=== PATIENT | female | born 1950 | race Caucasian/White ===

== ENCOUNTER → 2016-11-15 | Outpatient (CLI) | payer OTHER ==
[~2016-11-15] MED LIST: ALPRAZOLAM 0.50.5 M1; ATIVAN0.5 MG; CALCIUM 500 +1 EAC6; FENOFIBRATE200 MG; GLUCOPHAGE500 MG; OMEGA 3-6-9 CO1 EACH; OMEPRAZOLE 20 M20 MG; PAXIL; TRIAMTERENE-HC1 EAC1; VENLAFAXINE HCL75 M2; WOMEN'S 50+ DA1 EACH
== END ==
LOC: RAD 11:47
DX: Z12.31 Encounter for screening mammogram for malignant neoplasm of breast (principal)

== ENCOUNTER → 2017-12-30 | Outpatient (CLI) | payer OTHER | LOC: RAD 07:42 | DX: Z12.31 Encounter for screening mammogram for malignant neoplasm of breast (principal) ==

== ENCOUNTER → 2019-01-12 | Outpatient (CLI) | payer OTHER | LOC: RAD 08:38 | DX: Z12.31 Encounter for screening mammogram for malignant neoplasm of breast (principal) ==

== ENCOUNTER 2019-05-26 06:40 | Inpatient (IN) | payer OTHER ==
[~2019-05-26] VITALS: Ht 167.6 cm; Wt 80.7 kg
[2019-05-26 07:00] VITALS: BP 128/74
[2019-05-26 07:29] LABS: HEMATOCRIT 41.3 % (37.0-47.0); HEMOGLOBIN 13.5 gm/dL (12.0-15.0); MCH 26.8 pg (26.0-34.0); MCHC 32.6 g/dL (28.0-37.0); MCV 82.1 fL (80.0-100.0); RBC 5.03 mil/uL (4.20-5.00); RDW 15.1 % (10.5-14.5); WBC 14.3 thou/uL (4.0-11.0)
[2019-05-26] MEDS ORDERED: ASPIR 8181 MG PO (07:31)
[2019-05-26] MEDS ORDERED: ZETIA10 MG PO (07:36)
[2019-05-26 07:37] LABS: CALCIUM 10.2 mg/dL (8.5-10.1); POTASSIUM 3.1 mmol/L (3.5-5.1)
[2019-05-26 07:43] LABS: ALBUMIN 3.7 g/dL (3.4-5.0); TOTAL BILIRUBIN 0.5 mg/dL (<0.1-1.0); TOTAL PROTEIN 7.7 g/dL (6.4-8.2)
[2019-05-26 08:22] LABS: URINE BLOOD TRACE (Negative); URINE CLARITY CLEAR; URINE COLOR YELLOW; URINE GLUCOSE-RANDOM* NEGATIVE (Negative); URINE KETONES NEGATIVE (Negative); URINE NITRITE-REFLEX NEGATIVE (Negative); URINE PROTEIN (DIPSTICK) 1+ (Negative); URINE UROBILINOGEN 0.2 E.U./dl (0.2-1.0)
[2019-05-26 08:31] LABS: URINE LEUKOCYTES-REFLEX 1+ (Negative)
[2019-05-26 08:32] LABS: ICTOTEST (BILI CONFIRMATORY) Negative (Negative); SQUAMOUS 0-3 Few /LPF (0-3); URINE BILIRUBIN NEGATIVE (Negative)
[2019-05-26 08:34] LABS: BACTERIA-REFLEX 1-9 Few /HPF (None Seen); CRYSTALS None Seen /LPF (None Seen); HYALINE CASTS 0-3 Few /LPF (None Seen); URINE RBC 0-2 Rare /HPF (0-2)
[2019-05-26 08:57] VITALS: BP 149/56
[2019-05-26 09:28] VITALS: BP 125/60
[2019-05-26 16:10] VITALS: BP 147/79
--- NOTE | 2019-05-26 17:42 | NUR ---
68 YO FEMALE ADMITTED TO 424 BY W/C FROM ED. A&OX4, AMBULATES WOTH STAND BY ASSIST. IV INTACT IN R FA. PT HAVING LOOSE WATERY STOOLS. IV CONT. FLUIDS NS @ 100/HR STARTED, LAMOTAL PO GIVEN PRN. ORIENTED PT TO ROOM/CALL LIGHT. WILL CONT. POC.
[2019-05-26] MEDS ORDERED: COZAAR 25 MG TA25 M2 PO (20:01)
[2019-05-26 22:00] VITALS: BP 157/70
[2019-05-27 03:40] VITALS: BP 151/63
[2019-05-27 04:17] LABS: HEMATOCRIT 38.1 % (37.0-47.0); HEMOGLOBIN 12.4 gm/dL (12.0-15.0); MCH 26.8 pg (26.0-34.0); MCHC 32.5 g/dL (28.0-37.0); MCV 82.6 fL (80.0-100.0); RBC 4.62 mil/uL (4.20-5.00); RDW 14.8 % (10.5-14.5); WBC 9.5 thou/uL (4.0-11.0)
[2019-05-27 04:29] LABS: CALCIUM 8.6 mg/dL (8.5-10.1); CREATININE 0.7 mg/dL (0.6-1.0); POTASSIUM 3.9 mmol/L (3.5-5.1)
--- NOTE | 2019-05-27 05:28 | NUR ---
A/O, BP elevated, patient claimed she had been taking Losartan daily at home, Losartan was recorded into Medication Reconcile, MICROW[employer] SUPERVISOR Ms. Bradley notified. Bradley did not add Losartan, asking the staff to keep monitoring the patient. Will pass this on to the day shift.
[2019-05-27 08:19] VITALS: BP 126/70
--- NOTE | 2019-05-27 16:42 | NUR ---
PT FEELING MUCH BETTER. DIARRHEA MUCH BETTER SINCE STARTING ON IMMODIUM. NO MORE NAUSEA AND FEELING HUNGRY. TAKING CHICKEN BROTH AND WATER. HAS LOW BACK PAIN AT HOME AND NOW HAVING HERE. STARTED ON VOLTAREN GEL AND CELEBREX WHICH HAS TAKEN CARE OF PAIN. IV FLAGYL ORDERED THIS AFTERNOON.
[2019-05-27 16:47] VITALS: BP 152/65
[2019-05-27 19:15] VITALS: BP 135/70
[2019-05-28 05:23] VITALS: BP 123/59
--- NOTE | 2019-05-28 05:25 | NUR ---
PT AMBULATING IN HALLWAYS INDEPENDENTLY AND IS TOLERATING WELL. 23 LOOSE STOOL AT BEGINNING OF SHIFT. DENIES PAIN. DENIES NAUSEA. DIET ADVANCED TO CARB CONTROLLED. PLAN FOR DISCHARGE HOME 05/28. RESTING COMFORTABLY. NO NEEDS VOICED. CALL LIGHT WITHIN REACH. WILL CONTINUE TO PROVIDE FREQUENT OBSERVATION.
[2019-05-28 08:14] VITALS: BP 150/80
--- NOTE | 2019-05-28 13:54 | NUR ---
INITIAL ASSESSMENT: Pt evaluated for d/c planning needs. Reviewed chart and spoke with nurse and pt. Pt is alert and oriented. Pt remains active in the community and was employed until last week. 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 Pt lives alone in house and was independent with ADL's. Pt uses no DME and has not had home health in the past. Pt plans on returning home on d/c from hospital. Will remain available to assist as needed.
[2019-05-28 16:17] VITALS: BP 156/66
--- NOTE | 2019-05-28 16:28 | NUR ---
ASSUMED CARE OF PT AT 0700. ASSESSMENT CHARTED. DENIES ABD PAIN. DENIES N/V/D, STATES "RUMBLING" AFTER BREAKFAST. TOLERATING ADVANCED DIET. UP AD JUANJO IN ROOM. SKIN INTACT. C/O CHRONIC BACK PAIN, VOLTERAN CREAM APPLIED ORDERED. PLAN TO D/C SOON, DR. AGUIRRE REPORTED TOMORROW. VSS. WILL CONTINUE TO MONITOR.
[2019-05-28 19:18] VITALS: BP 144/60
--- NOTE | 2019-05-29 01:58 | NUR ---
PT DENIED PAIN SO FAR.UP ADLIB IN ROOM,WALKED IN THE PRATT WAY BEFORE RETIRING FOR THE NIGHT.VOLTAREN CREAM TO HER LOWER BACK AND SIDES OF HER LEG.NO LOOSE STOOL NOTED SO FAR THIS SHIFT BUT PT REPORTED HAVING FLATUS.PT RESTING COMFORTABLY ON HER BED AT THIS TIME.CALL LIGHT WITHIN REACH.
[2019-05-29 04:12] VITALS: BP 153/72
[2019-05-29 08:16] VITALS: BP 133/54
--- NOTE | 2019-05-29 10:28 | NUR ---
Following for d/c planning needs. Pt given requested information re: [facility]. Pt to d/c home today. No needs identified.
[2019-05-29 11:25] VITALS: BP 133/54
--- NOTE | 2019-05-29 11:32 | NUR ---
Pt in bed sound asleep at the beginning of shift but woke up for breakfast and am meds around 8:30am.Assessment completed.vss.Pt tolerated meds and breakfast.Dr Danielson here,dc order noted.Pt ambulated in hallways several times today.Dc summary compiled and will review with pt prior to dc home today at 1300.Will continue to monitor.
== END 2019-05-29 13:55 | disposition home or self-care (01) | DRG 392 ==
LOC: ER 06:40 → 4E 09:28 → EROBS 09:32 → 4E 09:33 → ENTRNSPT 05-29 13:33 → EDTRNSPTSTS 05-29 13:49 → 4E 05-29 13:55
PROVIDERS: Student in an Organized Health Care Education/Training Program; ADMIT Hospitalist
DX: K52.9 Noninfective gastroenteritis and colitis, unspecified (principal); E11.9 Type 2 diabetes mellitus without complications; E87.6 Hypokalemia; E78.5 Hyperlipidemia, unspecified; F32.9 Major depressive disorder, single episode, unspecified; E66.01 Morbid (severe) obesity due to excess calories; M54.30 Sciatica, unspecified side; Z68.28 Body mass index [BMI] 28.0-28.9, adult; Z90.49 Acquired absence of other specified parts of digestive tract; Z90.710 Acquired absence of both cervix and uterus; Z79.82 Long term (current) use of aspirin; Z79.84 Long term (current) use of oral hypoglycemic drugs; Z79.899 Other long term (current) drug therapy; Z88.7 Allergy status to serum and vaccine; Z91.041 Radiographic dye allergy status
CPT/HCPCS: 10084

== ENCOUNTER 2019-12-22 15:52 | Emergency (ER) | payer OTHER ==
[~2019-12-22] VITALS: Ht 167.6 cm; Wt 85.3 kg
[~2019-12-22 15:52] MED LIST changes: +ASPIR 8181 MG PO; +COZAAR 25 MG TA25 M2 PO; +ZETIA10 MG PO
[2019-12-22 16:23] LABS: ABSOLUTE NEUTROPHILS 7.7 thou/uL (1.4-8.2); BASOPHILS 0.9 % (0.0-2.0); EOSINOPHILS 3.4 % (0.0-3.0); HEMATOCRIT 41.4 % (37.0-47.0); HEMOGLOBIN 13.3 gm/dL (12.0-15.0); LYMPHOCYTES 23.7 % (24.0-44.0); MCH 27.1 pg (26.0-34.0); MCV 84.6 fL (80.0-100.0); MONOCYTES 7.1 % (1.0-8.0); PLATELET COUNT 256 thou/uL (150-400); POLYS 64.9 % (36.0-66.0); RDW 15.1 % (10.5-14.5); WBC 11.9 thou/uL (4.0-11.0)
[2019-12-22 16:41] LABS: ANION GAP 12 mmol/L (7-16); BUN 19 mg/dL (7-18); CALCIUM 10.2 mg/dL (8.5-10.1); CHLORIDE 100 mmol/L (98-107); CO2 27 mmol/L (21-32); CREATININE 0.8 mg/dL (0.6-1.0); GLUCOSE 101 mg/dL (74-106); POTASSIUM 4.7 mmol/L (3.5-5.1); SODIUM 139 mmol/L (136-145)
[2019-12-22 16:55] LABS: ALBUMIN 4.2 g/dL (3.4-5.0); SGOT 43 U/L (15-37); SGPT 50 U/L (30-65); TOTAL BILIRUBIN 0.2 mg/dL (<0.1-1.0); TOTAL PROTEIN 7.8 g/dL (6.4-8.2); TROPONIN-I <0.06 ng/mL (<0.06)
[2019-12-22] MEDS ORDERED: ACYCLOVIR 800800 MG PO (17:38)
[2019-12-22 17:50] VITALS: BP 185/84
[2019-12-22] MEDS ORDERED: ATIVAN0.5 M1 PO (17:50)
--- NOTE | 2019-12-28 15:34 | EKG ---
[facility] [place] [address] ELECTROCARDIOGRAM REPORT Name: NITIN WEN [facility] [id number] Admission: 12/22/19 Attend Phys: Discharge: 12/22/19 Date of : 52 Report #: [id number] THIS REPORT FOR: cc: Ramón Escalona MD, Neal A. MD Park, Jin S. MD ~ THIS REPORT FOR: //name// [facility] ED Test Date: 2019-12-22 Test Time: 15:55:33 Pat Name: NITIN WEN Department: Room: Gender: Advanced Manufacturing Engineer: [facility] : 1950 Requested By: Selvin Anna Order Number: [id number] MD: Jose Alejandro Avendano Measurements Intervals [place] Rate: 91 P: 60 ME: 147 QRS: 66 QRSD: 81 T: 59 QT: 355 QTc: 437 Interpretive Statements Sinus rhythm Anteroseptal infarct, old Compared to ECG 04/20/2002 03:05:19 Myocardial infarct finding now present Electronically Signed On 12-23-2019 10:03:37 BASKET BRAIDER by Jose Alejandro Avendano [email or web address] <ELECTRONICALLY SIGNED> By: Jose Alejandro Avendano MD 12/23/19 1003 1555 1555 Jose Alejandro Avendano MD /[facility]
== END 2019-12-22 17:50 | disposition home or self-care (01) ==
LOC: ER 15:52
PROVIDERS: Emergency Medicine
DX: F41.9 Anxiety disorder, unspecified (principal); B02.9 Zoster without complications; Z91.041 Radiographic dye allergy status; Z88.7 Allergy status to serum and vaccine; Z90.49 Acquired absence of other specified parts of digestive tract; Z90.710 Acquired absence of both cervix and uterus

== ENCOUNTER → 2020-05-20 | Outpatient (CLI) | payer OTHER ==
[~2020-05-20] MED LIST changes: +ACYCLOVIR 800800 MG PO; +ATIVAN0.5 M1 PO
== END ==
LOC: RAD 11:48
PROVIDERS: ATTEND Family Medicine
DX: Z12.31 Encounter for screening mammogram for malignant neoplasm of breast (principal)

== ENCOUNTER → 2020-12-02 | Outpatient (CLI) | payer OTHER | LOC: RAD 13:27 | PROVIDERS: ATTEND Nurse Practitioner | DX: R07.81 Pleurodynia (principal); M47.814 Spondylosis without myelopathy or radiculopathy, thoracic region ==

== ENCOUNTER 2021-05-20 11:32 | Inpatient (IN) | payer OTHER ==
[~2021-05-20] VITALS: Ht 165.1 cm; Wt 80.3 kg
[2021-05-20 11:38] VITALS: BP 168/76
--- NOTE | 2021-05-20 11:45 | NUR ---
PT NOTES ALREADY TAKING 81MG ASA RFID ANALYST.
[2021-05-20 12:16] LABS: ABSOLUTE NEUTROPHILS 13.7 thou/uL (1.4-8.2); BASOPHILS 0.3 % (0.0-2.0); EOSINOPHILS 1.4 % (0.0-3.0); HEMATOCRIT 39.6 % (37.0-47.0); HEMOGLOBIN 12.9 gm/dL (12.0-15.0); LYMPHOCYTES 14.5 % (24.0-44.0); MCH 27.5 pg (26.0-34.0); MCHC 32.6 g/dL (28.0-37.0); MCV 84.4 fL (80.0-100.0); PLATELET COUNT 252 thou/uL (150-400); POLYS 78.8 % (36.0-66.0); RBC 4.69 mil/uL (4.20-5.00); RDW 15.5 % (10.5-14.5); WBC 17.4 thou/uL (4.0-11.0)
[2021-05-20 12:19] LABS: ANION GAP 10 mmol/L (7-16); BUN 22 mg/dL (7-18); CALCIUM 9.6 mg/dL (8.5-10.1); CHLORIDE 101 mmol/L (98-107); CO2 26 mmol/L (21-32); CREATININE 0.8 mg/dL (0.6-1.0); GLUCOSE 185 mg/dL (74-106); POTASSIUM 4.1 mmol/L (3.5-5.1); SODIUM 137 mmol/L (136-145)
[2021-05-20 12:27] LABS: TROPONIN-I <0.06 ng/mL (<0.06)
[2021-05-20 13:38] LABS: URINE BILIRUBIN NEGATIVE (Negative); URINE BLOOD NEGATIVE (Negative); URINE CLARITY CLEAR; URINE COLOR YELLOW; URINE GLUCOSE-RANDOM* NEGATIVE (Negative); URINE KETONES NEGATIVE (Negative); URINE LEUKOCYTES-REFLEX NEGATIVE (Negative); URINE NITRITE-REFLEX NEGATIVE (Negative); URINE PROTEIN (DIPSTICK) NEGATIVE (Negative); URINE UROBILINOGEN 0.2 E.U./dl (0.2-1.0)
--- NOTE | 2021-05-20 16:06 | EKG ---
[place] [address] [place] [address] ELECTROCARDIOGRAM REPORT Name: NITIN WEN Room #: REG DUSTIN [place]#: [id number] Admission: 05/20/21 Attend Phys: Discharge: Date of : 52 Report #: [id number] [facility] ED Test Date: 2021-05-20 Test Time: 11:36:27 Pat Name: NITIN WEN Department: Room: Gender: F Animal Warden: kate : 1950 Requested By: Jaswinder Pina Order Number: [id number] MD: Aguila Nova Measurements Intervals [place] Rate: 96 P: 69 MD: 151 QRS: 71 QRSD: 92 T: 62 QT: 363 QTc: 459 Interpretive Statements Sinus rhythm Borderline low voltage, extremity leads Baseline wander in lead(s) V2,V3 Compared to ECG 12/22/2019 15:55:33 Myocardial infarct finding no longer present Electronically Signed On 05-20-2021 16:06:14 CDT by Aguila Nova [email or web address] <ELECTRONICALLY SIGNED> By: Aguila Nova MD, [facility] 05/20/21 1606 D: [id number] Aguila Nova MD, FACC /EPI
[2021-05-20 18:28] LABS: ABSOLUTE NEUTROPHILS 10.6 thou/uL (1.4-8.2); BASOPHILS 0.2 % (0.0-2.0); EOSINOPHILS 1.3 % (0.0-3.0); HEMATOCRIT 37.1 % (37.0-47.0); HEMOGLOBIN 12.3 gm/dL (12.0-15.0); LYMPHOCYTES 18.9 % (24.0-44.0); MCH 28.1 pg (26.0-34.0); MCV 85.1 fL (80.0-100.0); MONOCYTES 7.1 % (1.0-8.0); PLATELET COUNT 229 thou/uL (150-400); POLYS 72.5 % (36.0-66.0); RBC 4.36 mil/uL (4.20-5.00); RDW 15.8 % (10.5-14.5); WBC 14.6 thou/uL (4.0-11.0)
--- NOTE | 2021-05-20 19:10 | NUR ---
REPORT GIVEN TO ES MOLINA AT THIS TIME
[2021-05-20 19:27] VITALS: BP 112/48
== END 2021-05-20 19:27 | disposition home or self-care (01) | DRG 206 ==
LOC: ER 11:32 → EROBS 16:51
PROVIDERS: Nurse Practitioner; ADMIT Internal Medicine; ATTEND Internal Medicine
DX: M94.0 Chondrocostal junction syndrome [Tietze] (principal); I10 Essential (primary) hypertension; E78.5 Hyperlipidemia, unspecified; F32.9 Major depressive disorder, single episode, unspecified; D72.829 Elevated white blood cell count, unspecified; Z20.822 Contact with and (suspected) exposure to COVID-19; Z90.710 Acquired absence of both cervix and uterus; Z91.041 Radiographic dye allergy status; Z59.0 Homelessness; Z79.82 Long term (current) use of aspirin; Z79.899 Other long term (current) drug therapy

== ENCOUNTER → 2021-05-22 | Outpatient (CLI) | payer OTHER | LOC: CAT 14:21 | PROVIDERS: ATTEND Internal Medicine Cardiovascular Disease | DX: Z13.6 Encounter for screening for cardiovascular disorders (principal); E78.00 Pure hypercholesterolemia, unspecified; I25.10 Atherosclerotic heart disease of native coronary artery without angina pectoris ==

== ENCOUNTER → 2021-05-22 | Outpatient (CLI) | payer OTHER | LOC: SJCVCIMAG 11:44 | PROVIDERS: ATTEND Internal Medicine Cardiovascular Disease | DX: I07.1 Rheumatic tricuspid insufficiency (principal); R07.9 Chest pain, unspecified; E78.2 Mixed hyperlipidemia; E11.9 Type 2 diabetes mellitus without complications; I10 Essential (primary) hypertension; E78.5 Hyperlipidemia, unspecified; Z88.8 Allergy status to other drugs, medicaments and biological substances; Z79.82 Long term (current) use of aspirin; Z79.84 Long term (current) use of oral hypoglycemic drugs; Z79.899 Other long term (current) drug therapy; Z87.891 Personal history of nicotine dependence ==

== ENCOUNTER → 2021-05-27 | Outpatient (CLI) | payer OTHER | LOC: SJCVCIMAG 09:35 | PROVIDERS: ATTEND Internal Medicine Cardiovascular Disease | DX: I25.10 Atherosclerotic heart disease of native coronary artery without angina pectoris (principal); I10 Essential (primary) hypertension; E78.5 Hyperlipidemia, unspecified ==

== ENCOUNTER → 2021-05-28 | Outpatient (CLI) | payer OTHER | LOC: BC 10:55 | PROVIDERS: ATTEND Family Medicine | DX: Z12.31 Encounter for screening mammogram for malignant neoplasm of breast (principal) ==